=== PATIENT | female | born 1960 | race Caucasian/White ===

== ENCOUNTER → 2017-06-20 | Outpatient (CLI) | payer OTHER ==
[~2017-06-20] MED LIST: CLR10 PO; FLNIN NAE; IBUP-1050 PO; KFL500 PO; OMEP40CA PO; SYN100 PO
--- NOTE | 2017-06-21 13:56 | MAMMOGRAPHY REPORT ---
BILATERAL DIGITAL SCREENING MAMMOGRAM WITH CAD: 06/20/2017 CLINICAL HISTORY: Routine screening. Patient has no complaints. TECHNIQUE: Bilateral CC and MLO views were obtained. Current study was also evaluated with a Compute r Aided Detection (CAD) system. COMPARISON: Comparison is made to exams dated: 06/17/2016 mammogram, 06/16/2015 mammogram, 06/14/2014 mamm ogram, 06/13/2013 mammogram, 05/19/2012 mammogram, and 05/12/2012 mammogram - [facility] BREAST COMPOSITION: There are scattered areas of fibroglandular density in both breasts. FINDINGS: There are stable asymmetries in the lateral posterior right breast, and medial posterior le ft breast, which appears similar to numerous prior mammograms dating back to at least 2008, therefore likely benign. No new suspicious mass, architectural distortion or cluster of microcalcifications i s seen. IMPRESSION: ACR BI-RADS CATEGORY 1: NEGATIVE There is no mammographic evidence of malignancy. A 1 year screening mammogram is recommended. The pa tient will receive written notification of the results. Approximately 10% of breast cancers are not detected with mammography. A negative mammographic report should not delay biopsy if a clinically suggestive mass is present. Jocelyn Patel M.D. ay/:06/20/2017 16:55:07 Yarn Spooler: Alise VALLADARES)(M), [facility] letter sent: Normal 1/2 BI-RADS Code: ACR BI-RADS Category 1: Negative
== END | disposition home or self-care (01) ==
LOC: C.MAMM 16:17
PROVIDERS: ATTEND Family Medicine
DX: Z12.31 Encounter for screening mammogram for malignant neoplasm of breast (principal)

== ENCOUNTER → 2018-06-22 | Outpatient (CLI) | payer OTHER ==
--- NOTE | 2018-06-23 15:28 | MAMMOGRAPHY REPORT ---
BILATERAL DIGITAL SCREENING MAMMOGRAM TOMOSYNTHESIS WITH CAD: 06/22/2018 CLINICAL HISTORY: Routine screening. Patient has no complaints. TECHNIQUE: The study was acquired using full field digital technology and interpreted from soft copy. Breast tomosynthesis in addition to standard 2D mammography was performed. Current study was also ev aluated with a Computer Aided Detection (CAD) system. COMPARISON: Comparison is made to exams dated: 06/20/2017 mammogram, 06/17/2016 mammogram, 06/16/2015 mamm ogram, 06/14/2014 mammogram, 06/13/2013 mammogram, and 05/19/2012 mammogram - [facility] . BREAST COMPOSITION: There are scattered areas of fibroglandular density in both breasts. FINDINGS: No suspicious masses, calcifications, or areas of architectural distortion are noted in either breast . There has been no significant interval change compared to prior exams. IMPRESSION: ACR BI-RADS CATEGORY 1: NEGATIVE There is no mammographic evidence of malignancy. A 1 year screening mammogram is recommended.( 019) The patient will receive written notification of the results. Some breast cancers are not detected with mammography. A negative mammographic report should not deandra y biopsy if a clinically suggestive mass is present. Lucy Pérez M.D. ah/:06/22/2018 16:35:43 Housing Management Officer: RT Peyton(Debbie)(M), [facility] letter sent: Normal 1/2 BI-RADS Code: ACR BI-RADS Category 1: Negative
== END | disposition home or self-care (01) ==
LOC: C.MAMM 16:10
PROVIDERS: ATTEND Family Medicine
DX: Z12.31 Encounter for screening mammogram for malignant neoplasm of breast (principal)

== ENCOUNTER 2024-10-01 05:54 | Observation (INO) ==
--- NOTE | 2024-09-24 10:30 | Anesthesiology Consultation ---
Date of Service September 24, 2024 Assessment & Plan (1) Encounter for pre-operative examination: Chart Review Chart Review: Acceptable Risk for Surgery History Surgery Operation Date: 10/01/24 07:30 Proposed Procedures p Bilateral Breast Reduction - Avelina Lopez MD Height/Weight Height: 5 ft 4 in Weight: 79.832 kg Allergies Allergy/AdvReac Type Severity Reaction Status Date / Time Sulfa (Sulfonamide Allergy Intermediate "SULFA Verified 09/24/24 07:53 Antibiotics) DRUGS": HIVES Medications Home Medications Medication Instructions Recorded Confirmed Last Taken cetirizine 10 mg tablet (Zyrtec) 10 mg PO QAM 08/08/20 09/24/24 08/21/20 07:00 levothyroxine 100 mcg tablet 100 mcg PO QAM 08/08/20 09/24/24 08/21/20 05:00 (Levoxyl) albuterol 90 mcg/actuation aerosol 90 mcg inhalation Q4H 02/15/24 09/24/24 Unknown inhaler apixaban 5 mg tablet (Eliquis) 5 mg PO BID 02/15/24 09/24/24 Unknown metoprolol tartrate 25 mg tablet 25 mg PO BID 02/15/24 09/24/24 Unknown multivitamin 1 tab PO DAILY 02/15/24 09/24/24 Unknown nystatin 100,000 unit/gram topical 1 applic topical TID 02/15/24 09/24/24 Unknown powder omeprazole 20 mg capsule,delayed 20 mg PO BID 02/15/24 09/24/24 Unknown release polyethylene glycol 3350 17 17 g PO DAILY 02/15/24 09/24/24 Unknown gram/dose oral powder (Miralax) psyllium husk 3.4 gram/5.4 gram 1 tbsp PO DAILY 02/15/24 09/24/24 Unknown oral powder (Metamucil) oxycodone-acetaminophen 5 mg-325 1 tab PO Q4H PRN pain #18 tabs 09/21/24 09/21/24 Unknown mg tablet (Endocet) atorvastatin 10 mg tablet 10 mg PO QAM 09/24/24 09/24/24 Unknown Past Medical History Medical History Hyperlipidemia History of anemia d/t gastroparesis, follows w/ Dr Bo hematology- [facility]; hx iron infusions Seasonal allergies Hx of bronchitis ~2020; uses rescue inhaler when ill History of COVID-19 (2022) no hosp; resolved Atrial fibrillation reason for eliquis, controlled w/ meds, follows w/ Dr Church Polyp, stomach Kothari esophagus no current issue Gastroparesis GERD (gastroesophageal reflux disease) Hypothyroidism Past Family History Family History Father Colon cancer Grandmother (Paternal) Diabetes Other Cancer Past Surgical History Surgical History Hx of Achilles tendon repair Hx of hysterectomy History of esophagogastroduodenoscopy (EGD) History of colonoscopy [place] teeth extracted Hx of partial thyroidectomy Social History Smoking Status: Never smoker Do You Dip or Chew Tobacco: No Hx Alcohol Use: No Hx Substance Use: No substance use type: does not use Testing Laboratory Results Laboratory Tests 09/21/24 10:33 Hgb 11.8 L Plt Count 402 H Potassium 4.2 Creatinine 0.77 Electrocardiogram Date: 09/21/24 Findings: + AFIB @ (74) Echocardiogram Date: 11/24/23 EF: 55-60% LV Function: normal Valvular Disease: + AI (mild)
[2024-10-01] MEDS: LACTATED RINGER'S 1,000 ML IV SCH (06:21)
[2024-10-01] MEDS ORDERED: ROCURONIUM BROMIDE 10 MG/ML 5 ML VIAL IV ONE (06:54)
[2024-10-01] MEDS ORDERED: GLYCOPYRROLATE 0.2 MG/ML VIAL ONE (06:54)
[2024-10-01] MEDS ORDERED: ONDANSETRON INJ 2 MG/ML 2 ML VIAL ONE (06:54)
[2024-10-01] MEDS ORDERED: DEXAMETHASONE SOD INJ 4 MG/ML VIAL ONE (06:54)
[2024-10-01] MEDS ORDERED: PROPOFOL IV EMULSION 10 MG/ML 20 ML VIAL IV ONE (06:54)
[2024-10-01] MEDS ORDERED: MIDAZOLAM HCL 1 MG/ML 2ML VIAL ONE (06:54)
[2024-10-01] MEDS ORDERED: LIDOCAINE 2% 2 ML VIAL/AMP(20MG/ML) INFIL ONE (06:54)
[2024-10-01] MEDS ORDERED: fentaNYL citrate PF 100 MCG/2 ML VIAL ONE ×2 (06:55→07:53)
--- NOTE | 2024-10-01 06:56 | History & Physical Bridge Note ---
Date of Service October 01, 2024 History & Physical Bridge Note I have examined the patient, reviewed the History & Physical and in the interval since the performance of the History & Physical I have noted the following changes of clinical significance: no changes noted
[2024-10-01] MEDS ORDERED: SUGAMMADEX SODIUM 200 MG/2 ML VIAL IV ONE (07:00)
[2024-10-01] MEDS: ceFAZolin 2000MG 2,000 MG/15 ML SYR IV SCH ×2 (07:30→15:45)
[2024-10-01] MEDS ORDERED: FLUMAZENIL 0.1 MG/1 ML 10 ML VIAL IV PRN (07:31)
[2024-10-01] MEDS ORDERED: ATROPINE SULFATE 0.1 MG/ML 10ML SYR IV PRN (07:31)
[2024-10-01] MEDS ORDERED: NALOXONE HCL 0.4 MG/1 ML VIAL/CARP IV PRN (07:31)
[2024-10-01] MEDS ORDERED: ONDANSETRON INJ 2 MG/ML 2 ML VIAL IV PRN ×2 (07:31→11:11)
[2024-10-01] MEDS ORDERED: ePHEDrine sulfate 50 MG/ML AMP IV PRN (07:31)
[2024-10-01] MEDS ORDERED: HYDROmorphone INJ 1 MG/ML SYRINGE IV PRN (07:31)
[2024-10-01] MEDS ORDERED: PROMETHAZINE HCL 6.25 MG in SODIUM CHLORIDE 0.9% 50 ML IV PRN (07:31)
[2024-10-01] MEDS ORDERED: KETAMINE HCL 10MG/ML SYR ONE (07:56)
[2024-10-01] MEDS: LIDOCAINE 1%/EPINEPHRINE 1:100,000 50 ML VIAL ONE (08:23)
[2024-10-01] MEDS ORDERED: DROPERIDOL 5 MG/2 ML VIAL ONE (08:24)
[2024-10-01] MEDS ORDERED: ePHEDrine sulfate 50 MG/ML AMP ONE (09:06)
[2024-10-01] MEDS: TRANEXAMIC ACID 1,000 MG **IV Pre-op IV SCH (10:08)
--- NOTE | 2024-10-01 10:53 | Post Operative Brief Note ---
PG Immediate Post Op with CF Date of Surgery October 01, 2024 Pre & Post Diagnosis Operation Date: 10/01/24 07:30 Pre-Op Diagnosis: Symptomatic Macromastia Post-Op Diagnosis: Symptomatic Macromastia I identified the patient and participated in the time-out.: Yes Procedure Operation Date: 10/01/24 07:30 Actual Procedures p Bilateral Breast Reduction(Bilateral) - Avelina Lopez MD Surgeon Avelina Lopez MD Inspector Process Cynthia Wilkerson PA-C Estimated Blood Loss 10 Findings Consistent with Post-Op Diagnosis Specimens Specimen Description: A: Left Breast Tissue (558 grams - sent to lab at 0913) B: Right Breast Tissue (694 grams - sent to lab at 1025) C: Additional Left Breast Tissue (8 grams - sent to lab at 1045) D: Additional Right Breast Tissue (12 grams - sent to lab at 1045) Drains Franklyn Drain Anesthesia Type General Complications none
[2024-10-01] MEDS: BUPIVACAINE 0.25% PF 30 ML VIAL ONE (10:59)
[2024-10-01] MEDS ORDERED: oxyCODONE/ACETAMINOPHEN 5mg/325mg TAB PO PRN (11:11)
[2024-10-01] MEDS ORDERED: MoRPHine SULFATE 4 MG/ML 1 ML CARP\\VIAL IV PRN (11:11)
[2024-10-01] MEDS ORDERED: PROMETHAZINE 12.5 MG/50.5 ML BAG IV PRN (11:11)
[2024-10-01] MEDS ORDERED: MoRPHine SULFATE 2 MG/ML CARP IV PRN (11:11)
[2024-10-01] MEDS ORDERED: diphenhydrAMINE Capsule 25 MG CAP PO PRN (11:11)
[2024-10-01] MEDS ORDERED: diphenhydrAMINE 50 MG/ML VIAL IV PRN (11:11)
[2024-10-01] MEDS ORDERED: LORazepam 0.5 MG TAB PO PRN (11:11)
[2024-10-01] MEDS ORDERED: ACETAMINOPHEN 325 MG TAB PO PRN (11:11)
[2024-10-01] MEDS: fentaNYL citrate PF 100 MCG/2 ML VIAL IV PRN (11:24)
--- NOTE | 2024-10-01 11:48 | Anesthesiology Progress Note ---
Date of Service October 01, 2024 Anesthesia Post Procedure Vital Signs Vital Signs: Temp Pulse Resp BP Pulse Ox O2 Del Method O2 Flow Rate 10/01/24 11:35 36.7 C 72 13 121/69 95 Nasal Cannula 2 10/01/24 11:25 78 15 135/70 94 Nasal Cannula 2 10/01/24 11:15 71 13 131/70 98 Oxymask 9 10/01/24 11:05 36.0 C L 77 14 135/68 97 Oxymask 9 10/01/24 06:27 36.6 C 68 20 123/71 97 Room Air Pain Intensity Bilateral Breast: Pain Intensity: 2 Transfer of Care Handoff Completed per policy Notes Mental Status: alert / awake / arousable Patient Amnestic to Procedure: Yes Nausea / Vomiting: adequately controlled Pain: adequately controlled Airway Patency, RR, SpO2: stable & adequate BP & HR: stable & adequate Hydration State: stable & adequate Anesthetic Complications: no major complications apparent
[2024-10-01] MEDS: oxyCODONE/ACETAMINOPHEN 5mg/325mg TAB PO PRN (12:45)
--- NOTE | 2024-10-01 15:17 | Operative Report ---
PG Post Operative Report Pre & Post Diagnosis Operation Date: 10/01/24 07:30 Pre-Op Diagnosis: Symptomatic Macromastia Post-Op Diagnosis: Symptomatic Macromastia I identified the patient and participated in the time-out.: Yes Procedure Operation Date: 10/01/24 07:30 Actual Procedures p Bilateral Breast Reduction(Bilateral) - Avelina Lopez MD Surgeon Avelina Lopez MD Door Liner Helper Cynthia Wilkerson PA-C Estimated Blood Loss 10 Findings Consistent with Post-Op Diagnosis Specimens left breast tissue 566 grams, right breast tissue 606 grams Drains JPx2 Anesthesia Type General Complications none Indications back, neck and bilateral shoulder pain secondary to intertrigo Description of Procedure The risks, benefits, and alternatives of the procedure were explained to the patient who agreed and signed consent. She was identified and marked in the preoperative holding area. She was brought to the operating room where she was positioned supine and placed under general anesthesia without incident. Surgical site was prepped and draped sterilely. A time-out procedure was performed. I began with the left side. Markings were reassessed and a 7 cm pedicle was marked. 1% lidocaine with epinephrine was used to anesthetize the planned incisions. A 38 mm cookie cutter was used to circumscribe the nipple-areolar complex. The previously marked 7 cm pedicle was incised using a 15 blade scalpel and deepithelialized. I began with the medial dissection of the pedicle using electrocautery. Cautery was used to incise through dermis and breast parenchyma down to the chest wall, taking care not to undermine the pedicle during dissection. A similar procedure was undertaken on the lateral aspect of the pedicle again taking care not to undermine. Lastly, the pedicle was dissected out superiorly using electrocautery and this was carried down to the chest wall as well. I then began with excision of the medial breast tissue followed by lateral aspect of the breast tissue and surrounding keyhole incision. A 15 blade scalpel was used to make the inframammary fold incision and electrocautery was used to deepen the incision through dermis and breast parenchyma. Dissection was then carried superiorly to the level of the superior incision. Superior incision was then incised using a 15 blade scalpel and again dissected using electrocautery. This was undertaken laterally and then around the keyhole portion of the incision. Care was taken to leave some fat on the lateral pectoralis fascia in order to protect the T4 intercostal nerve. Hemostasis was achieved with electrocautery. The specimen was passed off in its entirety for weighing. Additional resection was undertaken from the superior flap in order to facilitate closure of the breast and to provide the best shape. The total resection weight of the smaller left breast was 566 grams. The wound was irrigated with saline and hemostasis was achieved with electrocautery. 0.25% Marcaine plain was used to anesthetize the incisions as well as the pectoralis fascia. A 15 Malay Franklyn drain was brought out through a separate stab incision. The nipple-areolar complex was brought into the keyhole using 2-0 Vicryl deep dermal suture. The wound was closed first in a lateral to mid breast direction and then medial to mid breast direction using 2-0 Vicryl deep dermal sutures. Vertical limb was also appr oximated using 2-0 Vicryl deep dermals and the nipple-areolar complex was inset using 2-0 Vicryl deep dermal sutures. Next, the superficial dermal layer was closed using 2-0 PDO running Quill suture along the inframammary fold and 3-0 PDS interrupted dermal sutures along the vertical limb and nipple- areolar complex. Lastly 3-0 Monocryl running subcuticular suture was placed. A similar procedure was undertaken on the larger right side with maximal excision weight of 606 grams. Breasts were symmetric and nipple-areolar complexes were viable bilaterally following wound closure. Dermabond Prineo was applied along the inframammary fold and vertical limb and Dermabond was placed around the nipple-areolar complex. Dry dressings and a surgical bra were placed. The patient was awakened and transferred to recovery room in satisfactory condition. Cynthia Wilkerson PA-C was present and scrubbed throughout the procedure and was instrumental in providing retraction during dissection of the pedicle and assisting in wound closure. I attest to the content of the Intraoperative Record and any orders documented therein. Any exceptions are noted below.
[2024-10-01] MEDS: METOPROLOL TARTRATE 25 MG TAB PO SCH (20:26)
[2024-10-01] MEDS: PANTOprazole 40 MG TAB PO SCH (20:26)
[2024-10-02 03:07] VITALS: O2SAT 97
[2024-10-02] MEDS: LEVOTHYROXINE SODIUM 100 MCG TABLET PO SCH (06:23)
[2024-10-02 07:42] VITALS: BP 116/66; PULSE 78; RESP 15; TEMP 97.9
[2024-10-02] MEDS: ATORVASTATIN 10 MG TAB PO SCH (08:37)
[2024-10-02] MEDS: MULTIVITAMIN TAB PO SCH (08:37)
[2024-10-02] MEDS: POLYETHYLENE (MIRALAX) 17 GM PACK PO SCH (08:38)
--- NOTE | 2024-10-02 09:18 | Surgery Progress Note ---
Date of Service October 02, 2024 Assessment & Plan (1) S/P bilateral breast reduction: Plan: Chasidy is POD #1. She is doing very well! She is ok for discharge to home. Her pain is controlled with PRN pain medication. She was able to fill her post-op pain medication script and has it at home. She is aware that she is not to shower until I see her in the office tomorrow. She will continue to hold her Eliquis therapy. Will plan on restarting it tomorrow as long as everything looks ok on exam. Drains removed at bedside. She is going to keep surgical dressings and bra in place until her follow-up office visit tomorrow. Return precautions reviewed. She was encouraged to call with any questions or concerns. Discharge order placed. Admission and Anticipated Discharge Date Admission Date: October 01, 2024 Subjective Chasidy is now 1 day s/p Bilateral Breast Reduction. She is doing well! She reports that she is sore, but the pain medication is keeping her comfortable. She tolerated breakfast well this morning. She denies any post-op nausea. Review of Systems Constitutional: as per Subjective / HPI; no fever and no chills Respiratory: no cough and no dyspnea Cardiovascular: no chest pain Physical Exam Physical Exam: Surgical bra removed to view surgical dressings. Dressings are dry. Dressings peeled back to view bilateral NACs. NACs are pink, viable with Dermabond in place around the periphery. Bilateral incisions are intact with surgical glue and tape in place. Bilateral drains have serosang output. Overnight output was 20 cc/drain. Bilateral drains removed at bedside without issue. Optifoam dressings placed. There are no sings of infection on exam. No evidence of hematoma formation. Constitutional: WD/WN, vitals as above Results & Data Vital Signs (Past 12 Hours) Vital Signs Temp Pulse Resp BP Pulse Ox O2 Del Method 10/02/24 07:42 36.6 C 78 15 116/66 97 Room Air 10/02/24 03:04 36.9 C 80 16 118/70 97 Room Air 10/01/24 22:52 36.8 C 84 16 127/74 91 Room Air PG Care Time/CCT Total # of Minutes Spent Total Time Spent with Patient: Total time spent is greater than 50% in coordination of care (as documented) at patient's floor/unit and/or counseling patient: Coding Level of Care Code 91524 Post Operative Follow-Up Diagnoses S/P bilateral breast reduction Z98.890
--- NOTE | 2024-10-03 08:52 | Discharge Summary ---
Date of Service October 03, 2024 Admission HPI Per Admitting Provider Please see admission H and P Admission Exam Per Admitting Provider Please see admission H and P Principal Diagnosis Macromastia Discharge Exam Surgical bra removed to view surgical dressings. Dressings are dry. Dressings peeled back to view bilateral NACs. NACs are pink, viable with Dermabond in place around the periphery. Bilateral incisions are intact with surgical glue and tape in place. Bilateral drains have serosang output. Overnight output was 20 cc/drain. Bilateral drains removed at bedside without issue. Optifoam dressings placed. There are no sings of infection on exam. No evidence of hematoma formation. Constitutional WD/WN, vitals as above Discharge Data Allergies Allergy/AdvReac Type Severity Reaction Status Date / Time Sulfa (Sulfonamide Allergy Intermediate "SULFA Verified 10/01/24 06:17 Antibiotics) DRUGS": HIVES Procedures Performed Operation Date: 10/01/24 07:30 Actual Procedures p Bilateral Breast Reduction(Bilateral) - Avelina Lopez MD Hospital Course (1) S/P bilateral breast reduction: Chasidy is a 64-year-old female with Bilateral Symptomatic Macromastia. She was taken to the OR and underwent bilateral breast reduction. There were no intraoperative complications. She was taken to recovery and transferred to med/surg for observation. On POD #1, she was a feeling a bit sore, but overall doing very well. She was tolerating a regular diet, voiding on her own, and ambulating without issue. On exam, her vitals were stable. Her incisions were clean, dry, intact and NACs viable. Drains were removed at bedside without issue and optifoam dressings placed. She was discharged home with instructions to follow-up in the office the next day. All questions answered. Total Time Total Time Spent Total Time Spent (In Minutes): 15 Discharge Plan Discharge Items Patient Disposition: Home - Self-Care Reason For Visit: Symptomatic Macromastia Discharge Diagnosis: Symptomatic Macromastia Activity: As commented below Non-emergency contact: Surgeon Call non-emergency contact if: you have any medication questions, your pain is not controlled, your temperature is above 101.5, your wound has increased redness and your wound has increased drainage Follow-up/Referrals: Sergio Daugherty MD [Primary Care Provider] - Diet: Regular Addtl Attending Provider Instructions: ACTIVITY RECOMMENDATIONS: __Normal activities _X_No bending, lifting or straining __No driving _X_Driving allowed when you are off pain medications _X_Walking permitted __You should have help at home for ___ days __You may return to previous diet. DRESSINGS: __No dressings required X__Keep dressings dry/in place until first office visit __Remove dressings ___ and leave dressings off __Apply ice ___ days __Remove dressings and reapply garment __Apply antibiotic ointment (Bacitracin, Neosporin, etc) to wounds 3-4 times/day for 10 days BATHING: X__Keep dressings dry _X_Sponge bathing permitted, but please keep surgical dressings dry. __Showering permitted _X_No swimming, hot tubs or soaking in a tub MEDICATIONS: Resume previous medications unless instructed otherwise by your surgeon. X__Do not use aspirin, Motrin, Advil or Ibuprofen as these may promote bleeding. Please use Tylenol. X__Prescription(s) provided: Prescription for post-op pain medication provided at your last office visit. Please use as prescribed. SPECIAL CARE INSTRUCTIONS: * It is normal to have a mild fever after surgery. If your temperature is higher than 101.5 degrees F, please call the office at [phone]. * Constipation is a typical side effect of pain medication. An [id number] stool softener will help relieve this. * If you have unusual drainage from a wound or are concerned you have an infection or have any questions or concerns, please call the office at [phone]. FOLLOW UP VISIT: If not already scheduled, please call the office, , when you return home after surgery to schedule an appointment to be seen in _1__ day. Pending Studies at Discharge: Yes Studies:: Pathology report. Stand-Alone Forms: My [employer], Smoking Cessation Medications and DC Order Prescriptions: Continued omeprazole 20 mg capsule,delayed release(DR/EC) 20 mg PO BID metoprolol tartrate 25 mg tablet 25 mg PO BID Metamucil 3.4 gram/5.4 gram powder 1 tbsp PO DAILY Rx Instructions: mix into at least 8 oz of water or juice before administering polyethylene glycol 3350 [Miralax] 17 gram/dose powder 17 g PO DAILY nystatin 100,000 unit/gram powder 1 applic topical TID albuterol 90 mcg/actuation aerosol 90 mcg inhalation Q4H oxycodone-acetaminophen [Endocet] 5-325 mg tablet 1 tab PO Q4H PRN (Reason: pain) Qty: 18 0RF Rx Instructions: initial therapy Dr. Lopez [id number] cetirizine [Zyrtec] 10 mg Tablet 10 mg PO QAM levothyroxine [Levoxyl] 100 mcg Tablet 100 mcg PO QAM atorvastatin 10 mg tablet 10 mg PO QAM Held Eliquis 5 mg tablet 5 mg PO BID Hold Instructions: Resume on 10/04/24. Please wait until instructed by Dr. Lopez's office to restart your Eliquis therapy. multivitamin Tablet 1 tab PO DAILY Hold Instructions: SURGERY Discharge Orders: Discharge Order (Routine); Ordered 10/02/24 Ordered By: Ashtyn Arellano Admission Data Admit Date/Time: 10/01/24 11:11 Attending Provider: Avelina Lopez Admit Provider: Avelina Lopez Primary Care Provider: Sergio Daugherty Other Interventions: Discharge Summary Assessment (RN) Last Done: 10/02/24 09:47 Coding Level of Care Code 35733 OBS Care - Discharge Diagnoses S/P bilateral breast reduction Z98.890
== END 2024-10-02 10:44 | disposition home or self-care (01) ==
LOC: ASU 05:54 → 3N 05:54